=== PATIENT | female | born 1950 | race Caucasian/White ===

== ENCOUNTER 2017-02-06 18:19 | Emergency (ER) | payer MEDICARE | END 2017-02-06 20:55 | disposition home or self-care (01) | LOC: ER1 18:19 | DX: S63.92XA Sprain of unspecified part of left wrist and hand, initial encounter (principal); S00.33XA Contusion of nose, initial encounter; S00.212A Abrasion of left eyelid and periocular area, initial encounter; E11.9 Type 2 diabetes mellitus without complications; I10 Essential (primary) hypertension; W01.198A Fall on same level from slipping, tripping and stumbling with subsequent striking against other object, initial encounter; Y92.009 Unspecified place in unspecified non-institutional (private) residence as the place of occurrence of the external cause; Z79.84 Long term (current) use of oral hypoglycemic drugs; Z79.899 Other long term (current) drug therapy | CPT/HCPCS: 70450; 70486; 72125; 73090; 73110; 73130; 90471; 90715; 99284 ==

== ENCOUNTER → 2021-07-24 | Outpatient (CLI) | payer MEDICARE, OTHER ==
[~2021-07-24] MED LIST: AMLODIPINE BESYL5 MG PO; BISOPROLOL FUMA10 MG PO; CELEBREX200 MG PO; CRESTOR10 MG PO; GLUCOPHAGE1000 MG PO; HYDROCHLOROTH12.5 MG PO; MICARDIS80 MG PO; TRICOR 145 MG145 MG PO; XYZAL5 MG PO
== END ==
LOC: US 09:30
DX: R10.11 Right upper quadrant pain (principal); R19.7 Diarrhea, unspecified; K76.0 Fatty (change of) liver, not elsewhere classified; K80.20 Calculus of gallbladder without cholecystitis without obstruction
CPT/HCPCS: 76705

== ENCOUNTER → 2021-10-01 | Outpatient (CLI) | payer MEDICARE ==
[~2021-10-01] MED LIST changes: +AMLODIPINE BESY10 MG PO; -AMLODIPINE BESYL5 MG PO; +BENTYL 10MG CAP10 MG PO; +CELEBREX 200MG200 MG PO; +LIPITOR TAB 2020 MG PO; +METFORMIN HCL1000 MG PO; +TELMISARTAN80 MG PO
== END ==
LOC: OPSV2 08:00
DX: K80.50 Calculus of bile duct without cholangitis or cholecystitis without obstruction (principal); R00.1 Bradycardia, unspecified
CPT/HCPCS: 93005

== ENCOUNTER → 2021-10-04 | Day surgery (SDC) | payer MEDICARE ==
[~2021-10-04] MED LIST changes: +EFUDEX 5% CREAM40 GM TOP; +ROXICODONE TAB 55 MG PO; +ZOFRAN ODT 4 MG4 MG GT
== END | disposition home or self-care (01) ==
LOC: OR 05:52
DX: K80.10 Calculus of gallbladder with chronic cholecystitis without obstruction (principal); K74.60 Unspecified cirrhosis of liver; K66.0 Peritoneal adhesions (postprocedural) (postinfection); M19.012 Primary osteoarthritis, left shoulder; M19.011 Primary osteoarthritis, right shoulder; E11.9 Type 2 diabetes mellitus without complications; I10 Essential (primary) hypertension; E78.1 Pure hyperglyceridemia; Z20.822 Contact with and (suspected) exposure to COVID-19; Z88.8 Allergy status to other drugs, medicaments and biological substances; Z91.013 Allergy to seafood; Z96.611 Presence of right artificial shoulder joint
CPT/HCPCS: 82962; C1729; J0690; J1100; J1170; J2001; J2250; J2405; J2550; J2704; J2710; J3010; J7030; J7120